=== PATIENT | female | born 1975 | race American Indian/Alaskan Native ===

== ENCOUNTER 2017-08-09 19:11 | Emergency (ER) | payer OTHER ==
[2017-08-09] MEDS ORDERED: ZOFRAN ONE (19:41)
[2017-08-09] MEDS ORDERED: ZOFRAN IV ONE ×2 (19:47→20:55)
[2017-08-09 20:01] LABS: Hematocrit 35.8 % (30.3-42.9); Mean Corpuscular HGB Conc 31 % (30-34); Mean Corpuscular Volume 71 fl (79-97); Platelet Count 365 K/mm3 (140-440); Red Blood Count 5.03 M/mm3 (3.65-5.03); Red Cell Distribution Width 18.7 % (13.2-15.2)
[2017-08-09 20:02] LABS: Mean Corpuscular Hemoglobin 22 pg (28-32)
[2017-08-09 20:08] LABS: Alanine Aminotransferase 16 units/L (7-56); Albumin 4.5 g/dL (3.9-5); BUN/Creatinine Ratio 16; Blood Urea Nitrogen 14 mg/dL (7-17); Calcium 8.6 mg/dL (8.4-10.2); Hemolysis Index 9
[2017-08-09] MEDS ORDERED: ANTIVERT PO ONE (20:55)
--- NOTE | 2017-08-09 20:59 | Emergency Department Report ---
ED Dizziness HPI - General Chief Complaint: Nausea/Vomiting/Diarrhea Stated Complaint: NAUSEA AND VOMITING Time Seen by Provider: 08/09/17 20:50 Source: EMS Mode of arrival: Ambulatory Limitations: No Limitations - History of Present Illness Initial Comments: Patient is 42 years old female history of hypertension. Patient presented to the ER complaining of sudden onset of dizziness, nausea and vomiting. Patient stated that she was cooking dinner when this started happening. She denied any diarrhea. No chest pain. No shortness of breath. Patient denied any weakness , numbness or tingling sensation. No bowel or bladder incontinence. Patient denied any neck pain or stiffness. MD Complaint: dizziness, lightheadedness -: Sudden Description: sense of movement Severity: moderate - Related Data Allergies Allergy/AdvReac Type Severity Reaction Status Date / Time No Known Allergies Allergy Verified 12/05/15 19:55 ED Review of Systems ROS: Stated complaint: NAUSEA AND VOMITING Other details as noted in HPI Comment: All other systems reviewed and negative Constitutional: denies: chills, fever Respiratory: denies: cough, orthopnea, shortness of breath, SOB with exertion, SOB at rest, wheezing Cardiovascular: denies: chest pain, palpitations, dyspnea on exertion Gastrointestinal: nausea, vomiting. denies: abdominal pain, diarrhea, constipation, hematemesis, melena, hematochezia Musculoskeletal: denies: back pain, joint swelling, arthralgia Neurological: headache, vertigo. denies: weakness, numbness, paresthesias, confusion, abnormal gait ED Past Medical Hx - Past Medical History Hx Hypertension: Yes Hx Asthma: Yes Hx HIV: Yes - Surgical History Past Surgical History?: No - Social History Smoking Status: Unknown if ever smoked ED Physical Exam - General Limitations: No Limitations General appearance: alert, in no apparent distress - Head Head exam: Present: atraumatic, normocephalic, normal inspection - Eye Eye exam: Present: normal appearance, PERRL - ENT ENT exam: Present: normal exam, normal orophraynx, mucous membranes moist - Neck Neck exam: Present: normal inspection, full ROM. Absent: tenderness, meningismus, lymphadenopathy, thyromegaly - Respiratory Respiratory exam: Present: normal lung sounds bilaterally. Absent: respiratory distress, wheezes, rales, rhonchi, stridor, chest wall tenderness, accessory muscle use, decreased breath sounds, prolonged expiratory - Cardiovascular Cardiovascular Exam: Present: regular rate, normal rhythm, normal heart sounds - GI/Abdominal GI/Abdominal exam: Present: soft, normal bowel sounds. Absent: distended, tenderness, guarding, rebound, rigid, organomegaly, mass, bruit, pulsatile mass , hernia - Extremities Exam Extremities exam: Present: normal inspection, full ROM, normal capillary refill - Back Exam Back exam: Present: normal inspection, full ROM. Absent: tenderness, CVA tenderness (R), CVA tenderness (L), muscle spasm, paraspinal tenderness, vertebral tenderness, rash noted - Neurological Exam Neurological exam: Present: alert, oriented X3, CN II-XII intact, normal gait, reflexes normal - Skin Skin exam: Present: warm, intact, normal color ED Course Vital Signs 08/09/17 08/09/17 19:23 20:10 Temperature 97.4 F L Pulse Rate 71 Respiratory 20 18 Rate Blood Pressure 167/88 Blood Pressure 167/88 [Right] O2 Sat by Pulse 100 100 Oximetry - Reevaluation(s) Reevaluation #1: 08/10/17 03:36 Patient stated that she is feeling better. I advised patient to follow up with her primary care physician in the next 2-3 days. I also advised to attend to the ER if her symptoms are not improving. ED Medical Decision Making - Lab Data Result diagrams: 08/09/17 19:41 08/09/17 19:41 - EKG Data -: EKG Interpreted by Me EKG shows normal: sinus rhythm - EKG Data Interpretation: no acute changes - Radiology Data Radiology results: report reviewed CT brain unremarkable for acute finding. Critical care attestation.: If time is entered above; I have spent that time in minutes in the direct care of this critically ill patient, excluding procedure time. ED Disposition Clinical Impression: Dizzinesses, Vomiting Disposition: DC-01 TO HOME OR SELFCARE Is pt being admited?: No Condition: Stable Instructions: Vertigo (ED) Referrals: PRIMARY CARE, [Primary Care Provider] - 3-5 Days
[2017-08-09 21:08] LABS: Band Neutrophils # (Manual) 5.3 K/mm3; Basophils % (Manual) 0 % (0.0-1.8); Eosinophils % (Manual) 0 % (0.0-4.3); Hypochromasia 1+; Monocytes % (Manual) 0 % (0.0-7.3); Total Cells Counted 100
[2017-08-09 21:09] LABS: Anisocytosis 1+
[2017-08-09 21:38] LABS: Lipase 23 units/L (13-60)
[2017-08-09] MEDS ORDERED: REGLAN ONE (21:47)
[2017-08-09] MEDS ORDERED: REGLAN IV ONE (21:47)
[2017-08-09 22:41] LABS: Bilirubin,Urine NEG (Negative); Blood,Urine NEG (Negative); Color,Urine Yellow (Yellow); Hyaline Casts,Urine 1 /LPF; Mucus,Urine FEW /HPF; Urobilinogen,Urine < 2.0 mg/dL (<2.0)
--- NOTE | 2017-08-09 22:43 | Cat Scan Report ---
FINAL REPORT PROCEDURE: CT HEAD/BRAIN WO CON TECHNIQUE: Computerized tomography of the head was performed without contrast material. HISTORY: dizziness COMPARISON: No prior studies are available for comparison. FINDINGS: Skull and scalp: Normal. Paranasal sinuses: Mild degree mucosal thickening is noted involving bilateral ethmoid sinuses.. Ventricles and subarachnoid spaces: Normal. Cerebrum: No evidence of hemorrhage, acute infarction or mass . Cerebellum and brainstem: No evidence of hemorrhage, acute infarction or mass. Vasculature: Normal. Comments: None. IMPRESSION: No acute intracranial abnormality Chronic ethmoid sinusitis
[2017-08-10] MEDS ORDERED: VALIUM PO ONE ×2 (00:47→01:06)
[2017-08-10] MEDS ORDERED: VALIUM ONE (00:54)
[2017-08-10 04:51] VITALS: BP 154/87
== END 2017-08-10 04:51 | disposition home or self-care (01) ==
LOC: ED 19:11
DX: R42 Dizziness and giddiness (principal); R11.2 Nausea with vomiting, unspecified; I10 Essential (primary) hypertension; J45.909 Unspecified asthma, uncomplicated; R51 Headache
CPT/HCPCS: 36415; 70450; 80053; 81001; 83690; 84484; 85007; 85025; 93005; 93010; 96374; 96375; 99284; J2405; J2765